=== PATIENT | male | born 1980 | race Caucasian/White ===

== ENCOUNTER 2017-08-29 16:51 | Emergency (ER) | payer SELFPAY ==
[2017-08-29 17:06] VITALS: BP 135/86
--- NOTE | 2017-08-29 18:09 | Cat Scan Report ---
FINAL REPORT PROCEDURE: CT HEAD/BRAIN WO CON TECHNIQUE: Computerized tomography of the head was performed without contrast material. HISTORY: trauma, head injury COMPARISON: No prior studies are available for comparison. FINDINGS: Skull and scalp: Scalp swelling left lateral temporal posterior parietal occipital area no underlying skull fracture seen Paranasal sinuses: Normal. Ventricles and subarachnoid spaces: Normal. Cerebrum: No evidence of hemorrhage, acute infarction or mass . Cerebellum and brainstem: No evidence of hemorrhage, acute infarction or mass. Vasculature: Normal. Comments: None. IMPRESSION: No acute intracranial bleed seen
== END 2017-08-30 06:38 | disposition left against medical advice (07) ==
LOC: ED 16:51
DX: S09.90XA Unspecified injury of head, initial encounter (principal); Z53.21 Procedure and treatment not carried out due to patient leaving prior to being seen by health care provider; X58.XXXA Exposure to other specified factors, initial encounter; Y93.89 Activity, other specified; Y99.8 Other external cause status; Y92.89 Other specified places as the place of occurrence of the external cause
CPT/HCPCS: 70450